=== PATIENT | male | born 1945 | race Two or more races ===

== ENCOUNTER 2023-08-20 02:16 | Emergency (ER) | payer MEDICAID ==
[~2023-08-20] VITALS: Ht 160 cm; Wt 61.0 kg
[2023-08-20 02:20] VITALS: BP 143/74; PULSE 68; RESP 19; TEMP 98.3
[2023-08-20] MEDS ORDERED: TraMADol HCL 50 MG TABLET PO ONE (03:15)
[2023-08-20] MEDS ORDERED: KETOROLAC TROMETHAMINE 30 MG/ML VIAL IM ONE (03:15)
[2023-08-20] MEDS ORDERED: TRAM-559 PO (03:18)
[2023-08-20] MEDS ORDERED: IBUP-1492 PO (03:18)
== END 2023-08-20 03:35 | disposition home or self-care (01) ==
LOC: EMS 02:18
DX: T14.8XXA Other injury of unspecified body region, initial encounter (principal); E11.9 Type 2 diabetes mellitus without complications; I10 Essential (primary) hypertension; X58.XXXA Exposure to other specified factors, initial encounter; Y93.89 Activity, other specified; Y92.89 Other specified places as the place of occurrence of the external cause; Y99.8 Other external cause status
CPT/HCPCS: 99283; 71045; 96372; J1885